=== PATIENT | female | born 1995 | race American Indian/Alaskan Native ===

== ENCOUNTER 2017-11-12 09:42 | Emergency (ER) | payer MEDICAID ==
[2017-11-12 09:49] VITALS: BP 123/70
--- NOTE | 2017-11-12 10:51 | Emergency Department Report ---
Blank Doc - Documentation Documentation: Patient is a 21-year-old [place] female who states that last month her period only lasted for 3 days which should normally last for 7 and she's now developed some lower abdominal discomfort with nausea vomiting and clear nipple discharge. Patient states she's been bleeding for the last 2 days. Patient took a Preg test approximately 2 weeks ago and was positive. Patient's test today was negative however the patient is still having lower abdominal discomfort with bleeding. Patient on brief physical exam does have some mild suprapubic tenderness. A urinalysis will be performed as well as ultrasound to rule out retained products of conception.
[2017-11-12 13:56] LABS: HCG Qualitative,Urine Negative (Negative)
[2017-11-12 14:02] LABS: Bilirubin,Urine NEG (Negative); Blood,Urine MOD (Negative); Color,Urine Yellow (Yellow); Protein,Urine <15 mg/dL mg/dL (Negative); Urobilinogen,Urine < 2.0 mg/dL (<2.0)
--- NOTE | 2017-11-12 15:18 | Ultrasound Report ---
Pelvic ultrasound: Pelvic pain. Endovaginal and transabdominal imaging demonstrates an anteverted uterus measuring 2.9-3.6 x 6.1 cm. The myometrium is homogeneous. The endometrial thickness is 4.1 mm. The left ovary measures 3.3 cm and is echogenically unremarkable. The right ovary measures 3.6 cm and contains multiple follicles. No free fluid identified. Impression: Normal exam.
--- NOTE | 2017-11-12 15:45 | Emergency Department Report ---
Vomiting/Diarrhea - HPI Chief Complaint: Abdominal Pain Stated Complaint: STOMACH ACHE Time Seen by Provider: 11/12/17 10:36 Duration: 2 Days Severity: mild Nausea/Vomiting Severity: Mild Diarrhea Severity: None Pain Location: Suprapubic Pain Severity: Mild Symptoms: Yes Able to Tolerate Fluids, No Watery Diarrhea, No Bloody diarrhea, No Fever, No Recent Unusual Foods, No Recent Untreated Water, No Recent use of Antibiotics, No Family w/ Similar Symptoms, No Contacts w/ Similar Symptoms, No Rash, No Hematuria, No Recent URI Symptoms Other History: Patient is a 21-year-old female who presents with nausea and abdominal pain for 2 days. Patient took a home tests that was +2 weeks ago. States she is now feeling nauseous tender breasts and pelvic pain. Last menstrual period was 10/17/2017. Reports periods are normally 7 days long and this time it was only 3 days which was concerning. Patient haven't taken oral contraceptives for 2-3 years. She also have developed some clear nipple discharge. Denies frequency, urgency, dysuria, low back pain, chest pain, and vaginal discharge. ED Review of Systems ROS: Stated complaint: STOMACH ACHE Other details as noted in HPI Constitutional: denies: chills, fever Respiratory: denies: cough, shortness of breath, wheezing Cardiovascular: denies: chest pain, palpitations Gastrointestinal: abdominal pain (suprapubic), nausea. denies: vomiting, diarrhea, constipation, hematochezia Musculoskeletal: denies: back pain, joint swelling, arthralgia Neurological: denies: headache, weakness, numbness, paresthesias Psychiatric: denies: anxiety, depression ED Past Medical Hx - Past Medical History Hx Asthma: Yes - Surgical History Past Surgical History?: No - Social History Smoking Status: Never Smoker Substance Use Type: None Vomiting Diarrhea Exam - Exam General: Vital signs noted. No distress. Alert and acting appropriately. HEENT: Yes Moist Mucous Membranes, No Pharyngeal Erythema, No Pharyngeal Exudates, No Rhinorrhea, No Conjuctival Injection, No Frontal Tenderness, No Maxillary Tenderness Neck: No Adenopathy, No Rigidity Lungs: Yes Clear Lung Sounds, Yes Good Air Exchange, No Wheezes, No Stridor, No Cough, No Nasal Flaring, No Retractions, No Use of Accessory Muscles Heart exam: Regular: Yes, Murmur: No, Tachycardia: No Abdomen: Tenderness: Yes (suprapubic), Peritoneal Signs: No, Distention: No, Hyperactive Bowel sounds: No Neurologic: Alert and oriented, no deficits. Musculoskeletal: Unremarkable. ED Course Vital Signs 11/12/17 09:45 Temperature 98.5 F Pulse Rate 69 Respiratory 17 Rate Blood Pressure 123/70 O2 Sat by Pulse 99 Oximetry ED Medical Decision Making - Radiology Data Radiology results: report reviewed Pelvic ultrasound: Pelvic pain. Endovaginal and transabdominal imaging demonstrates an anteverted uterus measuring 2.9-3.6 x 6.1 cm. The myometrium is homogeneous. The endometrial thickness is 4.1 mm. The left ovary measures 3.3 cm and is echogenically unremarkable. The right ovary measures 3.6 cm and contains multiple follicles. No free fluid identified. Impression: Normal exam. - Medical Decision Making This is a 21-year-old -[place] female who presents with nausea and suprapubic pain for 2 days. Patient was examined by me and Dr. Anderson. Vitals are stable and in no acute distress. Obtained urinalysis, urine hcg, and hcg quant. Moderate blood in urine, all other labs unremarkable. Patient is actively bleeding. Transvaginal and abdominal US obtained and read by radiologist, normal exam. Discharged home in stable condition. Discussed prevention options. F/U with PCP or Health Department. Critical care attestation.: If time is entered above; I have spent that time in minutes in the direct care of this critically ill patient, excluding procedure time. ED Disposition Clinical Impression: Abdominal cramping, Nausea alone, Negative test Disposition: TO HOME OR SELFCARE Is pt being admited?: No Does the pt Need Aspirin: No Condition: Stable Instructions: Abdominal Pain (ED) Additional Instructions: Follow up with [facility] or primary care provider in 1 week if symptoms persist. Referrals: [facility] [Provider Group] - 3-5 Days [facility] [Provider Group] - 3-5 Days [facility] [Outside] - 3-5 Days Forms: Work/School Release Form(ED) Time of Disposition: 15:52 Print Language: STATELESS
== END 2017-11-12 16:06 | disposition home or self-care (01) ==
LOC: ED 09:42
DX: R11.0 Nausea (principal); R10.30 Lower abdominal pain, unspecified; J45.909 Unspecified asthma, uncomplicated
CPT/HCPCS: 36415; 76830; 76856; 81001; 81025; 84702; 99284